=== PATIENT | male | born 1990 | race Caucasian/White ===

== ENCOUNTER 2021-01-07 09:05 | Emergency (ER) | payer OTHER ==
[2021-01-07 09:47] LABS: HEMOGLOBIN 13.9 gm/dl (14.0-17.5); RED BLOOD COUNT 4.3 M/UL (4.20-5.50); WHITE BLOOD COUNT 11.1 K/UL (4.5-11.0)
[2021-01-07 10:15] LABS: BUN/CREATININE RATIO 17 (0-10)
== END 2021-01-07 14:36 | disposition left against medical advice (07) ==
LOC: ER1 09:05
PROVIDERS: Physician Assistant Medical
DX: M54.5 Low back pain (principal); F17.210 Nicotine dependence, cigarettes, uncomplicated; Z20.822 Contact with and (suspected) exposure to COVID-19; Z86.19 Personal history of other infectious and parasitic diseases; Z79.899 Other long term (current) drug therapy
CPT/HCPCS: 36600; 80053; 82550; 82553; 82803; 83690; 85025; 96374; 99283; J1885; J7120; U0002

== ENCOUNTER 2021-02-17 06:27 | Inpatient (IN) | payer OTHER ==
[~2021-02-17] VITALS: Ht 182.9 cm; Wt 108.9 kg
[2021-02-17 06:57] LABS: HEMOGLOBIN 14.4 gm/dl (14.0-17.5); RED BLOOD COUNT 4.45 M/UL (4.20-5.50); WHITE BLOOD COUNT 15.2 K/UL (4.5-11.0)
[2021-02-17 07:38] LABS: BUN/CREATININE RATIO 16 (0-10)
--- NOTE | 2021-02-17 17:54 | NUR ---
CALLED CT TO INFORM THEM THAT DR TAYLOR WANTED THE CT DONE [place]. CT STATED THEY WERE BACKED UP WITH ER PATIENTS.
[2021-02-18 03:47] LABS: HEMOGLOBIN 11.2 gm/dl (14.0-17.5); RED BLOOD COUNT 3.54 M/UL (4.20-5.50); WHITE BLOOD COUNT 19.8 K/UL (4.5-11.0)
[2021-02-18 04:14] LABS: BUN/CREATININE RATIO 15 (0-10)
--- NOTE | 2021-02-18 15:55 | NUR ---
1555 WOUND VAC DECREASED TO 50 HGMM PER MD ORDER
--- NOTE | 2021-02-18 19:33 | NUR ---
1030 WOUND VAC CANISTER CHANGED AT THIS TIME. CANISTER WAS FULL 800 ML NOTED
--- NOTE | 2021-02-18 20:30 | NUR ---
CALF SCD PLACED RIGHT LE
[2021-02-19 03:36] LABS: HEMOGLOBIN 9.5 gm/dl (14.0-17.5)
[2021-02-19 03:44] LABS: RED BLOOD COUNT 3.04 M/UL (4.20-5.50); WHITE BLOOD COUNT 10.6 K/UL (4.5-11.0)
[2021-02-19 04:15] LABS: BUN/CREATININE RATIO 14 (0-10)
[2021-02-19 11:57] LABS: HEMOGLOBIN 9.7 gm/dl (14.0-17.5); RED BLOOD COUNT 3.04 M/UL (4.20-5.50)
[2021-02-19 17:08] LABS: HEMOGLOBIN 9.9 gm/dl (14.0-17.5)
--- NOTE | 2021-02-19 23:31 | NUR ---
1844 RECIEVED REPORT AT SHIFT CHANGE ON PT, HE WAS IN SURGERY AT THE TIME. 1942 DR. TAYLOR CALLED TO LET ME KNOW THE SURGERY WAS OVER PT WAS STABLE. 2019 PACU CALLED WITH REPORT ON PT; 2099 PT ARRIVED TO THE FLOOR. CALLED EMS FOR TRANSFER. 2202 CALLED [facility] AND SPOKE WITH YAA, THE NURSE RECEIVING THE PT AND GAVE AN UPDATE. ADMINISTERED NIGHT MEDS AND PAIN MEDICATION. PT IV, CORDERO AND WOUND VAC LEFT IN PLACE. VS WNL, PT LEFT THE FLOOR PER EMS FOR [facility] AT 2211
== END 2021-02-19 22:10 | disposition short-term general hospital (02) | DRG 493 ==
LOC: ER1 06:27 → CDU 10:40 → M/S 16:13
PROVIDERS: Family Medicine; Orthopaedic Surgery; ADMIT Surgery
PROC: 0KNT0ZZ Release Left Lower Leg Muscle, Open Approach (ICD-10-PCS; 2021-02-17)
PROC: 0KNT0ZZ Release Left Lower Leg Muscle, Open Approach (ICD-10-PCS; 2021-02-17)
PROC: 0KNT0ZZ Release Left Lower Leg Muscle, Open Approach (ICD-10-PCS; 2021-02-17)
PROC: 0KNT0ZZ Release Left Lower Leg Muscle, Open Approach (ICD-10-PCS; principal; 2021-02-17 12:00)
PROC: 0QSH35Z Reposition Left Tibia with External Fixation Device, Percutaneous Approach (ICD-10-PCS; 2021-02-17 12:00)
PROC: 0KBT0ZZ Excision of Left Lower Leg Muscle, Open Approach (ICD-10-PCS; 2021-02-19)
DX: S82.142A Displaced bicondylar fracture of left tibia, initial encounter for closed fracture (principal); S22.42XA Multiple fractures of ribs, left side, initial encounter for closed fracture; T79.A22A Traumatic compartment syndrome of left lower extremity, initial encounter; F11.20 Opioid dependence, uncomplicated; M96.830 Postprocedural hemorrhage of a musculoskeletal structure following a musculoskeletal system procedure; V89.0XXA Person injured in unspecified motor-vehicle accident, nontraffic, initial encounter; Z20.822 Contact with and (suspected) exposure to COVID-19; F17.200 Nicotine dependence, unspecified, uncomplicated; S82.492A Other fracture of shaft of left fibula, initial encounter for closed fracture; Z56.0 Unemployment, unspecified; Y83.8 Other surgical procedures as the cause of abnormal reaction of the patient, or of later complication, without mention of misadventure at the time of the procedure
CPT/HCPCS: 36415; 70450; 71260; 72125; 72128; 72131; 72170; 73552; 73564; 73590; 73700; 76000; 80048; 80053; 80307; 81001; 83605; 85014; 85018; 85025; 85027; 85610; 85730; 86850; 86900; 86901; 86920; 90471; 90715; 96374; 99285; C1713; G0480; J0690; J1100; J1170; J1650; J2001; J2250; J2270; J2405; J2704; J2710; J2765; J3010; J7030; J7120; Q9967; U0002

== ENCOUNTER 2021-04-08 16:12 | Emergency (ER) | payer OTHER ==
[2021-04-08 18:02] LABS: HEMOGLOBIN 11.3 gm/dl (14.0-17.5); RED BLOOD COUNT 4.27 M/UL (4.20-5.50); WHITE BLOOD COUNT 7.6 K/UL (4.5-11.0)
[2021-04-08 18:35] LABS: BUN/CREATININE RATIO 10 (0-10)
[2021-04-08] MEDS ORDERED: CEFUROXIME500 MG PO (19:53)
== END 2021-04-08 20:12 | disposition home or self-care (01) ==
LOC: ER1 16:12
PROVIDERS: Preventive Medicine Occupational Medicine
DX: Z48.817 Encounter for surgical aftercare following surgery on the skin and subcutaneous tissue (principal); F17.210 Nicotine dependence, cigarettes, uncomplicated
CPT/HCPCS: 73590; 80053; 85025; 85652; 86140; 96374; 99283; J3370; J7030

== ENCOUNTER 2021-07-08 11:04 | Inpatient (IN) | payer OTHER ==
[~2021-07-08] VITALS: Ht 185.4 cm; Wt 113.6 kg
[~2021-07-08 11:04] MED LIST: CEFUROXIME500 MG PO
[2021-07-08 13:22] LABS: HEMOGLOBIN 13.5 gm/dl (14.0-17.5); RED BLOOD COUNT 5.07 M/UL (4.20-5.50); WHITE BLOOD COUNT 12.9 K/UL (4.5-11.0)
[2021-07-08 14:03] LABS: BUN/CREATININE RATIO 9 (0-10)
[2021-07-08] MEDS ORDERED: SUBOXONE 8 MG-1 EACH SL (16:33)
[2021-07-09 05:24] LABS: WHITE BLOOD COUNT 14.9 K/UL (4.5-11.0)
[2021-07-09 05:25] LABS: RED BLOOD COUNT 4.37 M/UL (4.20-5.50)
[2021-07-09 05:42] LABS: BUN/CREATININE RATIO 13 (0-10)
[2021-07-10 05:26] LABS: HEMOGLOBIN 10.5 gm/dl (14.0-17.5); RED BLOOD COUNT 4.1 M/UL (4.20-5.50)
[2021-07-10 05:27] LABS: WHITE BLOOD COUNT 8.5 K/UL (4.5-11.0)
[2021-07-10 05:44] LABS: BUN/CREATININE RATIO 11 (0-10)
[2021-07-11 05:48] LABS: HEMOGLOBIN 11.3 gm/dl (14.0-17.5); RED BLOOD COUNT 4.47 M/UL (4.20-5.50)
[2021-07-11 05:49] LABS: WHITE BLOOD COUNT 11.3 K/UL (4.5-11.0)
[2021-07-11 06:24] LABS: BUN/CREATININE RATIO 11 (0-10)
[2021-07-12 04:02] LABS: BUN/CREATININE RATIO 8 (0-10)
--- NOTE | 2021-07-12 11:22 | NUR ---
PT ATTEMPTED TO GET OOB, SITTING AT END OF BED DEMANDING FC BE TAKEN OUT, STATES HE WANTS DISCHARGED. FC TAKEN OUT PER PTS REQUEST. ASSISTED PT IN CHAIR PER HIS REQUEST. EXPLAINED TO PT THE IMPORTANCE OF ASKING FOR ASSISTANCE TO GET OOB AND MD NOTIFIED PT FC OUT AND PT REQUESTING TO BE DISCHARGED
[2021-07-12] MEDS ORDERED: AUGMENTIN 875-1 EACH PO (11:32)
[2021-07-12] MEDS ORDERED: BACTRIM DS TAB1 EACH PO (11:32)
== END 2021-07-12 12:35 | disposition home or self-care (01) | DRG 917 ==
LOC: ER1 11:04 → EDBD 11:04 → CDU 13:23 → PROG CARE 13:23 → CCU 13:23 → PROG CARE 07-11 11:15
PROVIDERS: Emergency Medicine; Physician Assistant Medical; ADMIT Internal Medicine
PROC: 0BH18EZ Insertion of Endotracheal Airway into Trachea, Via Natural or Artificial Opening Endoscopic (ICD-10-PCS; principal; 2021-07-08)
PROC: 5A1945Z Respiratory Ventilation, 24-96 Consecutive Hours (ICD-10-PCS; 2021-07-08)
PROC: B24BZZZ Ultrasonography of Heart with Aorta (ICD-10-PCS; 2021-07-09)
DX: T43.621A Poisoning by amphetamines, accidental (unintentional), initial encounter (principal); J69.0 Pneumonitis due to inhalation of food and vomit; J96.90 Respiratory failure, unspecified, unspecified whether with hypoxia or hypercapnia; N17.9 Acute kidney failure, unspecified; Z20.822 Contact with and (suspected) exposure to COVID-19; F11.20 Opioid dependence, uncomplicated; I38 Endocarditis, valve unspecified; G93.40 Encephalopathy, unspecified; B19.20 Unspecified viral hepatitis C without hepatic coma; B95.62 Methicillin resistant Staphylococcus aureus infection as the cause of diseases classified elsewhere; R45.1 Restlessness and agitation; I07.1 Rheumatic tricuspid insufficiency; Z79.899 Other long term (current) drug therapy
CPT/HCPCS: ECHO; 31500; 36415; 36556; 36600; 43752; 51702; 70450; 71045; 80048; 80053; 80307; 81001; 82550; 82553; 82803; 83605; 83735; 83874; 84132; 84484; 85025; 85027; 87040; 87070; 87077; 87186; 87205; 93005; 93306; 94002; 94003; 94660; 94760; 99291; C9113; J0330; J1200; J1630; J1650; J1940; J2020; J2060; J2250; J2543; J2704; J3370; J3480; J7030; J7070; U0002

== ENCOUNTER 2021-09-28 06:25 | Emergency (ER) | payer OTHER ==
[~2021-09-28 06:25] MED LIST changes: +AUGMENTIN 875-1 EACH PO; +BACTRIM DS TAB1 EACH PO; +SUBOXONE 8 MG-1 EACH SL
== END 2021-09-28 09:14 | disposition home or self-care (01) ==
LOC: ER1 06:25
DX: S20.211A Contusion of right front wall of thorax, initial encounter (principal); M79.662 Pain in left lower leg; F17.200 Nicotine dependence, unspecified, uncomplicated; X50.9XXA Other and unspecified overexertion or strenuous movements or postures, initial encounter
CPT/HCPCS: 71045; 93971; 96372; 99284; J1885

== ENCOUNTER 2022-04-14 02:00 | Emergency (ER) | payer OTHER | END 2022-04-14 04:45 | disposition home or self-care (01) | LOC: ER1 02:00 | DX: M25.462 Effusion, left knee (principal); F17.200 Nicotine dependence, unspecified, uncomplicated | CPT/HCPCS: 73564; 99283 ==